=== PATIENT | male | born 1970 | race Caucasian/White ===

== ENCOUNTER 2017-05-11 08:07 | Emergency (ER) | payer BC ==
[2017-05-11 08:16] VITALS: BMI 28.9
[2017-05-11 08:18] VITALS: BP 119/94; PULSE 107; RESP 18; TEMP 98.2; O2SAT 99
[2017-05-11] MEDS ORDERED: Sodium Chloride 0.9% 1,000 ML IV STA (08:51)
--- NOTE | 2017-05-11 09:09 | ED PDOC ---
HPI: Abdomen Time Seen by Provider: 05/11/17 08:13 Chief Complaint (Nursing): Abdominal Pain Chief Complaint (Provider): dark stools, epigastric burning History Per: Patient History/Exam Limitations: no limitations Onset/Duration Of Symptoms: Days (5) Current Symptoms Are (Timing): Still Present Location Of Pain/Discomfort: Epigastric Quality Of Discomfort: Burning Associated Symptoms: Nausea. denies: Back Pain, Chest Pain, Constipation, Urinary Symptoms Exacerbating Factors: None Alleviating Factors: None Last Bowel Movement: Today Additional Complaint(s): 46yo male hx gastric and duodenal ulcers 5 years ago, presents now with epigastric burning for a week and black malodorous stools for last several days. Denies dizziness, syncope, lower abdominal pain, or fever. States drinks alcohol socially and takes NSAIDs about once every other week. Past Medical History Reviewed: Historical Data, Nursing Documentation, Vital Signs Vital Signs: Last Vital Signs Temp 98.2 F 05/11/17 08:17 Pulse 107 H 05/11/17 08:17 Resp 18 05/11/17 08:17 BP 119/94 H 05/11/17 08:17 Pulse Ox 99 05/11/17 09:10 - Medical History PMH: Gastrointestinal Ulcer - Surgical History Surgical History: No Surg Hx - Family History Family History: States: Unknown Family Hx - Social History Current smoker - smoking cessation education provided: No Alcohol: Social - Home Medications Home Medications: Ambulatory Orders Medication Instructions Recorded Esomeprazole Magnesium [Nexium] 40 mg PO DAILY #10 capsule. 05/11/17 - Allergies Allergies/Adverse Reactions: Allergies Allergy/AdvReac Type Severity Reaction Status Date / Time No Known Allergies Allergy Verified 05/11/17 08:33 Review of Systems ROS Statement: Except As Marked, All Systems Reviewed And Found Negative Constitutional: Negative for: Fever, Chills Cardiovascular: Negative for: Chest Pain, Palpitations Gastrointestinal: Positive for: Abdominal Pain, Other (melena). Negative for: Hematochezia, Hematemesis Genitourinary Male: Negative for: Dysuria, Frequency Musculoskeletal: Negative for: Neck Pain Physical Exam - Reviewed Nursing Documentation Reviewed: Yes Vital Signs Reviewed: Yes - Physical Exam Appears: Positive for: Well, Non-toxic, No Acute Distress Head Exam: Positive for: ATRAUMATIC, NORMAL INSPECTION, NORMOCEPHALIC Skin: Positive for: Normal Color, Warm, DRY Eye Exam: Positive for: EOMI, Normal appearance, PERRL ENT: Positive for: Normal ENT Inspection Neck: Positive for: Normal, Painless ROM Cardiovascular/Chest: Positive for: Regular Rate, Rhythm Respiratory: Positive for: CNT, Normal Breath Sounds Gastrointestinal/Abdominal: Positive for: Bowel Sounds, Soft, Tenderness ( minimal epigastric tenderness) Back: Positive for: Normal Inspection Extremity: Positive for: Normal ROM Neurologic/Psych: Positive for: Alert, Oriented - Laboratory Results Result Diagrams: 05/11/17 10:01 05/11/17 10:01 - ECG O2 Sat by Pulse Oximetry: 99 Medical Decision Making Medical Decision Making: workup initiated for upper GI bleed. Check CBC, coags, chem. IVF and pepcid ordered. ------ labs reviewed, no signs anemia. Dr Murillo GI oyster tonger saw patient in ED, states ok for outpatient workup and will likely do scope. Rx nexium, followup GI 5 days. Return ER for any weakness, worse symptoms, pain or any concern. Disposition - Clinical Impression Clinical Impression: Upper GI bleed - Patient ED Disposition Is Patient to be Admitted: No Counseled Patient/Family Regarding: Studies Performed, Diagnosis, Need For Followup, Rx Given - Disposition Referrals: Clay Murillo MD, PhD [Staff Provider] - Disposition: Routine/Home Disposition Time: 11:30 Condition: STABLE Additional Instructions: Return to ER for any worse or new symptoms. Take medication as directed. See GI doctor as directed. Prescriptions: Esomeprazole Magnesium [Nexium] 40 mg PO DAILY #10 capsule. Instructions: Gastrointestinal Bleeding (ED) Forms: [employer] ([place])
[2017-05-11 10:19] LABS: BASO % 0.8 % (0.0-2.0); EOS # 0.1 K/uL (0.0-0.7); EOS % 1.3 % (0.0-4.0); HEMOGLOBIN 17.9 g/dL (12.0-18.0); LYMPH # 1.8 K/uL (1.0-4.3); LYMPH % 31.6 % (20.0-40.0); MEAN CORPUSCULAR HEMOGLOBIN 32.5 pg (27.0-31.0); MEAN CORPUSCULAR HGB CONC 34.9 g/dL (33.0-37.0); MEAN PLATELET VOLUME 8.1 fl (7.2-11.7); MONO # 0.6 K/uL (0.0-0.8); NEUT # 3.1 K/uL (1.8-7.0); NEUT % 55.3 % (50.0-75.0); NRBC % 0.1 % (0.0-0.0); RBC 5.52 Mil/uL (4.40-5.90); RED CELL DISTRIBUTION WIDTH 13.5 % (11.5-14.5); WHITE BLOOD COUNT 5.6 K/uL (4.8-10.8)
[2017-05-11 10:22] LABS: ALB/GLOB RATIO 1.3 (1.0-2.1); ALBUMIN 4.6 g/dL (3.5-5.0); ALT/SGPT 60 U/L (21-72); AST/SGOT 52 U/L (17-59); BLOOD UREA NITROGEN 21 mg/dl (9-20); CALCIUM 9.9 mg/dL (8.4-10.2); GFR AFRICAN-AMERICAN > 60; GFR NON-AFRICAN AMERICAN 60; LIPASE 42 U/L (23-300)
[2017-05-11 10:45] LABS: PROTHROMBIN TIME 11.9 Seconds (9.8-13.1)
[2017-05-11 10:46] LABS: INR 1.1 (0.9-1.2); PARTIAL THROMBOPLASTIN TIME 33.6 Seconds (25.6-37.1)
== END 2017-05-11 13:50 | disposition home or self-care (01) ==
LOC: H.ER 08:07
DX: K92.2 Gastrointestinal hemorrhage, unspecified (principal)
CPT/HCPCS: 80053; 83690; 85025; 85610; 85730; 96374; 99282; C9113; G0480; J7040